=== PATIENT | male | born 1975 | race African-American/Black ===

== ENCOUNTER 2017-03-24 23:59 | Emergency (ER) | payer SELFPAY ==
[~2017-03-24] VITALS: Ht 160 cm; Wt 64.0 kg
[2017-03-25 00:01] VITALS: BP 150/85; PULSE 112; RESP 16; TEMP 99.6; O2SAT 97
[2017-03-25 00:16] VITALS: BP 131/86; PULSE 112; RESP 18; TEMP 99.5; O2SAT 98
[2017-03-25] MEDS ORDERED: ONDANSETRON HCL 4 MG/2 ML VIAL IV ONE (00:30)
[2017-03-25] MEDS ORDERED: SODIUM CHLOR 0.9% 1000 ML INJ 1,000 ML IV ONE ×2 (00:30→02:45)
--- NOTE | 2017-03-25 00:32 | PD ---
HPI Chief Complaint: GI Complaint Time Seen by Provider: 00:18 Travel History International Travel<30 days: No Contact w/Intl Traveler<30days: No Traveled to known affect area: No History of Present Illness HPI The patient is 42 year old male who presents to the [facility] emergency department with a history of vomiting that began at 10AM today. He has vomited 10-12 times. He denies any diarrhea. He last moved his bowels today. No blood in his stool. He has also had a cough and congestion for 4 days. He has a sore throat. He denies having any known fevers. He denies having any neck pain. The patient reports that he has a postnasal drip. He reports that he has been exposed to black mold when he was in group home. The patient reports that he has been coughing up black sputum. When I asked him to produce a sample, he reports that he will not make himself cough anymore as it hurts too much. On review of systems, the patient denies having any chest pain, shortness of breath , abdominal pain, diarrhea, urinary symptoms, or neurologic symptoms. [facility] Past Medical History Narrative Medical The patient's past medical history is reportedly none. Medical History: Denies Significant Hx Tetanus Vaccination: < 5 Years Influenza Vaccination: No Past Surgical History Surgical History: No Previous Surgery Social History Alcohol Use: Yes (3-4 beers per day.) Tobacco Use: Yes (1/2 ppd) Substance Use: No Allergies-Medications (Allergen,Severity, Reaction): Coded Allergies: codeine (Verified Adverse Reaction, Unknown, Irritability/Anxiety, 03/25/17 ) Reported Meds & Prescriptions Reported Meds & Active Scripts Active Prochlorperazine Supp (Prochlorperazine) 25 Mg Supp 25 Mg RECTAL Q12HR PRN Zofran Odt (Ondansetron Odt) 4 Mg Tab 4 Mg SL Q6HR PRN Review of Systems Except as stated in HPI: all other systems reviewed are Neg General / Constitutional: No: Fever Eyes: No: Visual changes HENT: Positive: Rhinorrhea, Congestion, No: Headaches Cardiovascular: No: Chest Pain or Discomfort Respiratory: Positive: Cough, No: Shortness of Breath Gastrointestinal: Positive: Nausea, Vomiting, No: Diarrhea, Abdominal Pain, Indigestion, Loss of Appetite Genitourinary: No: Dysuria Musculoskeletal: No: Pain Skin: No Rash Neurologic: No: Weakness Psychiatric: No: Depression Endocrine: No: Polydipsia Hematologic/Lymphatic: No: Easy Bruising Physical Exam Narrative General: The patient is a well-developed well-nourished male in no acute distress. Head and Neck exam: Head is normocephalic atraumatic. Eyes: EOMI, pupils are equal round and reactive to light. Nose: Midline septum with pink mucous membranes Mouth: Dentition unremarkable. Moist mucus membranes. Posterior oropharynx is erythematous without exudates or palatal petechiae. No tonsillar hypertrophy. Uvula midline. Airway patent. Neck: No palpable lymphadenopathy. No nuchal rigidity. No thyromegaly. Cardiovascular: Regular rate and rhythm without murmurs, gallops, or rubs. No pulse deficit to the extremities. Lungs: Clear to auscultation bilaterally. No wheezes, rhonchi, or rales. Abdomen: Soft, without tenderness to palpation in all 4 quadrants of the abdomen. No guarding, rebound, or rigidity. Normal bowel sounds are audible. No tenderness on palpation of McBurney's point. Extremities: No clubbing, cyanosis, or edema. 2+ pulses in all 4 extremities. No calf tenderness on palpation. Back: No spinous process tenderness to palpation. No costovertebral angle tenderness to palpation. Neurologic Exam: Grossly nonfocal. Skin Exam: No rash noted. Intact skin that is warm and dry. Data Data Last Documented VS Vital Signs Date Time Temp Pulse Resp B/P (MAP) Pulse Ox O2 Delivery O2 Flow Rate FiO2 03/25/17 01:58 99 18 146/84 (104) 100 03/25/17 00:58 Room Air 03/25/17 00:16 99.5 Orders Orders Comprehensive Metabolic Panel (03/25/17 00:29) Lipase (03/25/17 00:29) Magnesium (Mg) (03/25/17:29) Creatine Kinase (Cpk) (03/25/17:29) Ckmb (Isoenzyme) Profile (03/25/17:29) Troponin I (03/25/17:29) B-Type Natriuretic Peptide (03/25/17:29) Prothrombin Time / Inr (Pt) (03/25/17:) Act Partial Throm Time (Ptt) (03/25/17 00:29) Chest, Single Ap (03/25/17 00:29) Iv Access Insert/Monitor (03/25/17 00:29) Ecg Monitoring (03/25/17 00:29) Oximetry (03/25/17 00:29) Sodium Chlor 0.9% 1000 Ml Inj (Ns 1000 M (03/25/17 00:30) Ondansetron Inj (Zofran Inj) (03/25/17 00:30) Complete Blood Count With Diff (03/25/17 00:29) Ketorolac Inj (Toradol Inj) (03/25/17 01:00) CKMB (03/25/17 00:55) CKMB% (03/25/17 00:55) Prochlorperazine Inj (Compazine Inj) (03/25/17 02:00) Sodium Chlor 0.9% 1000 Ml Inj (Ns 1000 M (03/25/17 02:45) Ed Discharge Order (03/25/17 02:46) Labs Laboratory Tests Test 03/25/17 00:55 White Blood Count 4.9 TH/MM3 Red Blood Count 4.56 MIL/MM3 Hemoglobin 15.1 GM/DL Hematocrit 44.3 % Mean Corpuscular Volume 97.1 FL Mean Corpuscular Hemoglobin 33.2 PG Mean Corpuscular Hemoglobin Concent 34.2 % Red Cell Distribution Width 12.4 % Platelet Count 410 TH/MM3 Mean Platelet Volume 7.8 FL Neutrophils (%) (Auto) 43.3 % Lymphocytes (%) (Auto) 48.2 % Monocytes (%) (Auto) 7.2 % Eosinophils (%) (Auto) 0.3 % Basophils (%) (Auto) 1.0 % Neutrophils # (Auto) 2.1 TH/MM3 Lymphocytes # (Auto) 2.4 TH/MM3 Monocytes # (Auto) 0.4 TH/MM3 Eosinophils # (Auto) 0.0 TH/MM3 Basophils # (Auto) 0.1 TH/MM3 CBC Comment DIFF FINAL Differential Comment Prothrombin Time 11.4 SEC Prothromb Time International Ratio 1.0 RATIO Activated Partial Thromboplast Time 26.6 SEC Blood Urea Nitrogen 5 MG/DL Creatinine 1.11 MG/DL Random Glucose 102 MG/DL Total Protein 7.9 GM/DL Albumin 3.8 GM/DL Calcium Level 8.7 MG/DL Magnesium Level 2.2 MG/DL Alkaline Phosphatase 82 U/L Aspartate Amino Transf (AST/SGOT) 49 U/L Alanine Aminotransferase (ALT/SGPT) 65 U/L Total Bilirubin 0.9 MG/DL Sodium Level 141 MEQ/L Potassium Level 3.9 MEQ/L Chloride Level 99 MEQ/L Carbon Dioxide Level 33.9 MEQ/L Anion Gap 8 MEQ/L Estimat Glomerular Filtration Rate 87 ML/MIN Total Creatine Kinase 298 U/L Creatine Kinase MB 0.5 NG/ML Troponin I LESS THAN 0.02 NG/ML B-Type Natriuretic Peptide 6 PG/ML Lipase 101 U/L [facility] Medical Decision Making Medical Screen Exam Complete: Yes Emergency Medical Condition: Yes Medical Record Reviewed: Yes Interpretation(s) Last Impressions Chest X-Ray 03/25/17 0029 Signed Impressions: Service Date/Time: Saturday, March 25, 2017 00:43 - CONCLUSION: 1. No acute cardiopulmonary disease. Alden Jain MD Differential Diagnosis Pneumonia, versus bronchitis, versus viral upper respiratory infection, versus viral syndrome, versus pancreatitis, dehydration, versus electrolyte arrangements Narrative Course During the course of the patients emergency department visit, the patients history, examination, and differential diagnosis were reviewed with the patient. The patient was placed on a cardiac catheterization technologist with oximetry and frequent blood pressure monitoring. The patient had IV access obtained and blood work sent for analysis. The patient was initially provided normal saline 1 L IV fluid bolus, Zofran 4 mg IV. He reported continued nausea and was given Compazine 5 mg IV. The patients laboratory studies were reviewed and remarkable for a CBC that shows a white count of 4.9, hemoglobin 15.1, platelets 410 with 48.2 lymphocytes , CMP is remarkable for CO2 of 33.9, BUN 5, GFR of 87, AST 49, cardiac enzymes within normal limits, BNP is 6, lipase 101, PT PTT within normal limits Radiology studies were reviewed and remarkable for a chest x-ray that shows no acute cardiopulmonary disease per The patient is instructed to push fluids and get plenty of rest. The patient's symptoms are most consistent with viral upper respiratory infection associated with vomiting. The patient will be discharged home with a prescription for nausea medication. The patient is instructed to stay hydrated with an electrolyte rich solution such as Gatorade or Pedialyte. The patient is resting comfortably and feels better, is alert and in no distress. The patients results and examination findings were discussed with the patient. The repeat examination is unremarkable and benign. The history, exam, diagnostic testing, and current condition do not suggest any significant pathology to warrant further testing, continued ED treatment, admission, or surgical evaluation at this point. The vital signs have been stable. The patient does not have uncontrollable pain, intractable vomiting, or other significant symptoms. The patient's condition is stable and appropriate for discharge. The patient will pursue further outpatient evaluation with a primary care physician or other designated or consulting physician as indicated in the discharge instructions. The patient expressed understanding and was agreeable with this plan. Diagnosis Primary Impression: Upper respiratory infection Qualified Codes: J06.9 - Acute upper respiratory infection, unspecified; B97.89 - Other viral agents as the cause of diseases classified elsewhere Additional Impression: Vomiting Qualified Codes: R11.2 - Nausea with vomiting, unspecified Referrals: [facility] 2 days [facility] PO 2 days Additional Instructions: The patient is instructed to push fluids and get plenty of rest. The patient's symptoms are most consistent with viral upper respiratory infection associated with vomiting. The patient will be discharged home with a prescription for nausea medication. The patient is instructed to stay hydrated with an electrolyte rich solution such as Gatorade or Pedialyte. Med/Other Pt SpecificInfo: Prescription(s) given Scripts Prochlorperazine Supp (Prochlorperazine Supp) 25 Mg Supp 25 MG RECTAL Q12HR Y for NAUSEA OR VOMITING, #2 SUPP 0 Refills Prov: Shirin Keller MD 03/25/17 Ondansetron Odt (Zofran Odt) 4 Mg Tab 4 MG SL Q6HR Y for Nausea/Vomiting, #7 TAB 0 Refills Prov: Shirin Keller MD 03/25/17 Disposition: DISCHARGE HOME Condition: Stable Shirin Keller MD Mar 25, 2017 00:32
[2017-03-25 00:58] VITALS: O2SAT 100
[2017-03-25] MEDS ORDERED: KETOROLAC TROMETHAMINE 30 MG/ML (IVP) VIAL IV PUSH ONE (01:00)
--- NOTE | 2017-03-25 01:04 | RADRPT ---
EXAM DATE/TIME: 03/25/2017 00:43 [place] COMPARISON: No previous studies available for comparison. INDICATIONS : Weakness. Vomiting. MEDICAL HISTORY : None. SURGICAL HISTORY : None. ENCOUNTER: Initial ACUITY: 3 days PAIN SCORE: 0/10 LOCATION: Bilateral chest FINDINGS: A single view of the chest demonstrates the lungs to be symmetrically aerated without evidence of mas s, infiltrate or effusion. The cardiomediastinal contours are unremarkable. Osseous structures are intact. CONCLUSION: 1. No acute cardiopulmonary disease. Alden Jain MD on March 25, 2017 at 1:02 Board Certified Radiologist. This report was verified electronically.
[2017-03-25 01:10] LABS: AUTOMATED NEUTROPHIL # 2.1 TH/MM3 (1.8-7.7); BASOPHIL # 0.1 TH/MM3 (0-0.2); EOSINOPHIL % 0.3 % (0.0-4.0); HEMATOCRIT 44.3 % (39.0-51.0); HEMO FLAGS DIFF FINAL; LYMPH % 48.2 % (9.0-44.0); LYMPHOCYTE # 2.4 TH/MM3 (1.0-4.8); MEAN CELL VOLUME 97.1 FL (80.0-100.0); MEAN CORPUSCULAR HEMOGLOBIN 33.2 PG (27.0-34.0); MEAN CORPUSCULAR HGB CONC 34.2 % (32.0-36.0); MONO % 7.2 % (0.0-8.0); NEUT % 43.3 % (16.0-70.0); PLATELET COUNT 410 TH/MM3 (150-450); RED BLOOD COUNT 4.56 MIL/MM3 (4.50-5.90); RED CELL DISTRIBUTION WIDTH 12.4 % (11.6-17.2); WHITE BLOOD COUNT 4.9 TH/MM3 (4.0-11.0)
[2017-03-25 01:13] LABS: APTT (PATIENT) 26.6 SEC (24.3-30.1); PROTHROMBIN TIME - PATIENT 11.4 SEC (9.8-11.6)
[2017-03-25 01:30] LABS: ALT (GPT) 65 U/L (12-78); ANION GAP 8 MEQ/L (5-15); AST (GOT) 49 U/L (15-37); BICARBONATE 33.9 MEQ/L (21.0-32.0); BLOOD UREA NITROGEN 5 MG/DL (7-18); CHLORIDE 99 MEQ/L (98-107); GLOMERULAR FILTRATION RATE 87 ML/MIN (>89); MAGNESIUM 2.2 MG/DL (1.5-2.5); POTASSIUM 3.9 MEQ/L (3.5-5.1); SODIUM (NA) 141 MEQ/L (136-145)
[2017-03-25 01:35] LABS: ALKALINE PHOSPHATASE 82 U/L (45-117); CREATINE KINASE 298 U/L (39-308); TOTAL BILIRUBIN ADULT 0.9 MG/DL (0.2-1.0)
[2017-03-25 01:48] LABS: CKMB 0.5 NG/ML (0.5-3.6)
[2017-03-25 01:58] VITALS: BP 146/84; PULSE 99; RESP 18; O2SAT 100
[2017-03-25] MEDS ORDERED: PROCHLORPERAZINE INJ 10 MG/2 ML VIAL IV PUSH ONE (02:00)
[2017-03-25] MEDS ORDERED: ZOFR4TAB3 SL (02:43)
[2017-03-25] MEDS ORDERED: PROC25SU22 RECTAL (02:43)
== END 2017-03-25 03:36 | disposition home or self-care (01) ==
LOC: NEPC 23:59
DX: J06.9 Acute upper respiratory infection, unspecified (principal); B97.89 Other viral agents as the cause of diseases classified elsewhere; R11.2 Nausea with vomiting, unspecified; R53.1 Weakness; F17.200 Nicotine dependence, unspecified, uncomplicated
CPT/HCPCS: 71010; 80053; 82550; 82552; 83690; 83735; 83880; 84484; 85025; 85610; 85730; 96361; 96374; 96375; 99284; J0780; J1885; J2405; J7030